=== PATIENT | female | born 1990 | race African-American/Black ===

== ENCOUNTER 2016-11-09 06:04 | Inpatient (IN) | payer OTHER ==
[~2016-11-09] VITALS: Ht 162.6 cm; Wt 77.1 kg
[2016-11-09] MEDS ORDERED: ACETAMINOPHEN 325 MG TABLET. PO PRN ×2 (06:15→18:15)
[2016-11-09] MEDS ORDERED: LIDOCAINE 1% PF 30 ML VIAL. INJ PRN (06:15)
[2016-11-09] MEDS ORDERED: 0.9 % SODIUM CHLORIDE 10 ML DISP.SYRIN. IV PRN ×2 (06:15→18:15)
[2016-11-09] MEDS ORDERED: TERBUTALINE 1 MG/ML VIAL. SQ PRN (06:15)
[2016-11-09] MEDS ORDERED: ONDANSETRON PF 4 MG/2 ML VIAL. IV PRN ×2 (06:15→13:30)
[2016-11-09] MEDS ORDERED: BUTORPHANOL 2 MG/ML VIAL. IV PRN (06:15)
[2016-11-09] MEDS ORDERED: fentaNYL PF VIAL 100 MCG/2 ML VIAL IV PRN (06:15)
[2016-11-09] MEDS ORDERED: OXYTOCIN 30 UNIT/500 ML PREMIX 500 ML IV PRN ×3 (06:15→18:15)
[2016-11-09] MEDS ORDERED: MAG HYDROX/ALUMINUM HYD/SIMETH 30 ML ORAL.SUSP PO PRN ×2 (06:15→18:15)
[2016-11-09] MEDS ORDERED: CITRIC ACID/SODIUM CITRATE 30 ML SOLUTION. PO PRN (06:15)
[2016-11-09 06:25] VITALS: BP 100/56
[2016-11-09] MEDS ORDERED: OMEG100021 PO (06:33)
[2016-11-09] MEDS ORDERED: PNV1TABL25 PO (06:33)
[2016-11-09 06:56] LABS: HEMATOCRIT 33.6 % (36.0-47.0); HEMOGLOBIN 11.3 g/dL (12.0-15.5); RED BLOOD COUNT 3.67 x10^6/uL (3.50-5.40); RED CELL DISTRIBUTION WIDTH 15.6 % (11.5-14.5); WHITE BLOOD COUNT 4.8 x10^3/uL (4.0-11.0)
[2016-11-09 08:15] LABS: BILIRUBIN,URINE NEGATIVE (NEG); GLUCOSE,URINE NEGATIVE (NEG); NITRITE,URINE NEGATIVE (NEG); PROTEIN,URINE NEGATIVE (NEG-TRACE); UROBILINOGEN,URINE 0.2 mg/dL (0.2 mg/dL)
[2016-11-09 08:26] LABS: BACTERIA,URINE FEW /HPF (0-FEW); RBC,URINE 0 /HPF (0-2); SQUAMOUS EPITHELIAL CELL,UR MANY /LPF
[2016-11-09] MEDS: IV RINGERS,LACTATED 1000ML 1,000 ML IV SCH ×3 (08:35→14:14)
--- NOTE | 2016-11-09 11:32 | PDOC1 ---
OB - History Hx of Present Care: Good Care Ultrasounds: Normal mid trimester US Obstetrical Complications: None Medical Complications: None Past Family/Social History * Past Medical, Surgical, Family and Obstetric Histories reviewed from chart. Rubella: Immune RPR/VDRL: Negative GBS Status: Negative HBsAG: Negative OB - Chief Complaint & HPI Date of Admission: Date of Admission: Nov 09, 2016 at 06:04 Chief Complaint/History : 3 Para: 2 EGA: 41 Reason for admission: induction of labor Indication for induction: maternal discomfort Admission Nurse Assessment Rev: Yes Problems: OB - Admission Exam Physical Exam Vitals: VS - Last 72 Hours, by Label Date Time Temp Pulse Resp B/P (MAP) Pulse Ox O2 Delivery O2 Flow Rate FiO2 11/09/16 06:25 98.0 82 18 100/56 (71) Room Air 98.0 HEENT: Normal Heart: Regular Rate Lungs: Clear, Equal Abdomen: Gravid, Non tender, Soft Extremities: Edema Reflexes: Normal Cervical Dilatation: 2cm Effacement: 50% Station: -3 Membranes: Intact Heart Rate: Normal Accelerations: Accelerations Present Decelerations: No decelerations Contractions on Admission: >10 Minutes Apart Intensity: Mild Text A: 39 wks IUP IOL secondary maternal discomforts P; Admit for IOl pitocin. MURRAY ALMEIDA Jr, MD Nov 09, 2016 11:32
[2016-11-09] MEDS ORDERED: L&D EPIDURAL CASSETTE 100 ML EP ONE (12:59)
[2016-11-09] MEDS ORDERED: ROPIVacaine 0.2% IN 0.9%NACL PF 40 MG/20 ML DISP.SYRIN. ONE ×2 (12:59→13:00)
[2016-11-09] MEDS ORDERED: L&D EPIDURAL CASSETTE 100 ML PUMP.RESVR. EP ONE (13:00)
[2016-11-09] MEDS ORDERED: ROPIVacaine 0.2% PF 10 ML VIAL. EPI ONE (13:30)
[2016-11-09] MEDS ORDERED: NALOXONE 0.4 MG/ML VIAL. IV PRN (13:30)
[2016-11-09] MEDS ORDERED: fentaNYL PF VIAL 100 MCG/2 ML VIAL EPI ONE (13:30)
[2016-11-09] MEDS ORDERED: ePHEDrine PF IN SALINE 50 MG/5 ML DISP.SYRIN IV PRN (13:30)
--- NOTE | 2016-11-09 18:10 | PDOC ---
VAGINAL DELIVERY DATE DATE: 11/09/16 TIME: 18:08 : 3 Para: 2 EDC: Nov 16, 2016 VAGINAL DELIVERY: VTX VACCUM ASSISTED: No PLACENTA: Spontaneous SEX: Male WEIGHT 6/3 Nuchal Cord: No Amniotic Fluid: Clear PAIN: Epidural EBL 300cc COMPLICATIONS None CONDITION Stable Signs of Intrauterine Infectio: None Shoulder Dystocia: No DIAGNOSIS TIUP del Problems: CYNDI HURD MD Nov 09, 2016 18:09
[2016-11-09] MEDS ORDERED: ZOLPIDEM 5 MG TABLET. PO PRN (18:15)
[2016-11-09] MEDS ORDERED: SIMETHICONE 80 MG TAB.CHEW PO PRN (18:15)
[2016-11-09] MEDS ORDERED: BENZOCAINE 20% TOPICAL AEROSOL SPRAY 57GM CAN. TP PRN (18:15)
[2016-11-09] MEDS ORDERED: diphenhydrAMINE HCL 25 MG CAPSULE PO PRN (18:15)
[2016-11-09] MEDS ORDERED: HYDROCORTISONE 1% TOPICAL OINTMENT 30GM TUBE. TP PRN (18:15)
[2016-11-09] MEDS ORDERED: MAGNESIUM HYDROXIDE 2,400 MG/30 ML ORAL.SUSP. PO PRN (18:15)
[2016-11-09] MEDS ORDERED: PHENYLEPH/MINERAL OIL/PETROLAT RECTAL OINTMENT 28GM TUBE. RC PRN (18:15)
[2016-11-09] MEDS: IBUPROFEN 800 MG TABLET. PO SCH (21:00)
[2016-11-09 21:45] VITALS: BP 113/63
[2016-11-09] MEDS: HYDROcodone/APAP 5/325MG 1 TAB TABLET PO PRN (22:56)
[2016-11-09 23:07] VITALS: BP 118/66
[2016-11-10] MEDS: HYDROcodone/APAP 5/325MG 1 TAB TABLET PO PRN ×3 (03:52→13:12)
[2016-11-10] MEDS: IBUPROFEN 800 MG TABLET. PO SCH (03:52)
[2016-11-10 03:58] VITALS: BP 106/68
[2016-11-10 06:23] LABS: RPR REFLEX Non Reactive (Non Reactive)
[2016-11-10] MEDS ORDERED: FERROUS SULFATE 325 MG TABLET. PO SCH (08:00)
[2016-11-10 10:30] VITALS: BP 104/59
[2016-11-10] MEDS: IBUPROFEN 800 MG TABLET. PO PRN (13:13)
--- NOTE | 2016-11-10 14:31 | PDOC ---
Provider Note Provider Note Doing well VSS Uterus NTTP FU in AM CYNDI HURD MD Nov 10, 2016 14:31
[2016-11-10] MEDS ORDERED: DIPHTH,PERTUSS(ACELL),TET TOX 0.5 ML DISP.SYRIN. VAX IM ONE (16:00)
[2016-11-10 16:30] VITALS: BP 126/83
[2016-11-10 22:05] VITALS: BP 106/58
[2016-11-11] MEDS: IBUPROFEN 800 MG TABLET. PO PRN ×2 (00:18→08:48)
[2016-11-11] MEDS: HYDROcodone/APAP 5/325MG 1 TAB TABLET PO PRN (00:18)
[2016-11-11 05:25] VITALS: BP 104/67
--- NOTE | 2016-11-11 10:22 | PDOC ---
OB Progress Note Date of Service 11/11/16 Time of Evaluation 1020 Notes Pt. feeling well. No complaints. Lab Laboratory Tests Test 11/10/16 04:00 Hematocrit 35.4 % (36.0-47.0) Medications Current Medications Sodium Chloride (Normal Saline Flush) 3 ml QSHIFT PRN IV AFTER MEDS AND BLOOD DRAWS; Start 11/09/16 at 06:15; Stop 11/10/16 at 17:02; Status DC Ringer's Solution 1,000 ml @ 125 mls/hr Q8H IV Last administered on 11/09/16t 14:14; Start 11/09/16 at 06:05; Stop 11/10/16 at 17:02; Status DC Butorphanol Tartrate (Stadol) 2 mg PRN Q1HR PRN IV Severe labor pain; Start at 06:15; Stop 11/10/16 at 17:02; Status DC Fentanyl Citrate (Fentanyl 2ml Vial) 100 mcg PRN Q30MIN PRN IV Severe pain; Start 11/09/16 at 06:15 Acetaminophen (Tylenol) 650 mg PRN Q6HRS PRN PO MILD PAIN / TEMP; Start at 06:15; Stop 11/10/16 at 17:02; Status DC Ondansetron HCl (Zofran) 4 mg PRN Q4HRS PRN IV NAUSEA/VOMITING; Start 11/09/16 at 06:15; Stop 11/10/16 at 17:02; Status DC Al Hydroxide/Mg Hydroxide (Mylanta Plus Xs) 30 ml PRN Q4HRS PRN PO HEARTBURN / GAS; Start 11/09/16 at 06:15; Stop 11/10/16 at 17:02; Status DC Citric Acid/ Sodium Citrate (Bicitra) 30 ml 1X PRN PRN PO DYSPEPSIA; Start at 06:15; Stop 11/10/16 at 06:14; Status DC Terbutaline Sulfate (Brethine) 0.25 mg 1X PRN PRN SQ SEE COMMENTS; Start at 06:15; Stop 11/10/16 at 06:14; Status DC Lidocaine HCl 30 ml 1X PRN PRN INJ SEE COMMENTS; Start 11/09/16 at 06:15; Stop 11/11/16 at 06:14; Status DC Oxytocin/Sodium Chloride 500 ml @ 0 mls/hr CONT PRN IV SEE I/O RECORD Last administered on 11/09/16 08:36; Start 11/09/16 at 06:15; Stop 11/10/16 at 17:02 ; Status DC Oxytocin/Sodium Chloride 500 ml @ 0 mls/hr CONT PRN PRN IV Post delivery bleeding; Start 11/09/16 at 06:15; Stop 11/10/16 at 17:02; Status DC Ibuprofen (Motrin) 800 mg PRN Q6HRS PRN PO PAIN Last administered on 11/11/16 08:48; Start 11/09/16 at 06:15 Ropivacaine/ Fentanyl/NS 100 ml @ As Directed STK-MED ONCE EP ; Start 11/09/16 at 12:59; Stop 11/09/16 at 13:00; Status DC Ropivacaine 40 mg STK-MED ONCE .ROUTE ; Start 11/09/16 at 12:59; Stop 11/09/16 at 13:00; Status DC Ephedrine Sulfate 10 mg PRN Q2MIN PRN IV IF SBP<90; Start 11/09/16 at 13:30 Naloxone HCl (Narcan) 0.04 mg PRN Q1MIN PRN IV SEE COMMENTS; Start 11/09/16 at 13:30 Fentanyl Citrate (Fentanyl 2ml Vial) 100 mcg 1X ONCE EPI ; Start 11/09/16 at 13 :30; Stop 11/09/16 at 13:31; Status DC Ondansetron HCl (Zofran) 4 mg PRN Q6HRS PRN IV NAUSEA/VOMITING; Start 11/09/16 at 13:30 Ropivacaine (Naropin 0.2%) 20 ml 1X ONCE EPI ; Start 11/09/16 at 13:30; Stop at 13:31; Status DC Sodium Chloride (Normal Saline Flush) 10 ml QSHIFT PRN IV AFTER MEDS AND BLOOD DRAWS; Start 11/09/16 at 18:15; Stop 11/10/16 at 17:02; Status DC Oxytocin/Sodium Chloride 500 ml @ 62.5 mls/hr CONT PRN IV SEE I/O RECORD; Start 11/09/16 at 18:15; Stop 11/10/16 at 02:14; Status DC Acetaminophen (Tylenol) 650 mg PRN Q6HRS PRN PO MILD PAIN / TEMP; Start at 18:15 Ibuprofen (Motrin) 800 mg Q8HRS PO Last administered on 11/10/16 03:52; Start 11/09/16 at 22:00; Stop 11/10/16 at 17:02; Status DC Magnesium Hydroxide (Milk Of Magnesia) 2,400 mg PRN DAILY PRN PO CONSTIPATION; Start 11/09/16 at 18:15 Al Hydroxide/Mg Hydroxide (Mylanta Plus Xs) 30 ml PRN Q4HRS PRN PO HEARTBURN / GAS; Start 11/09/16 at 18:15 Simethicone (Gas-X) 80 mg PRN AFTMEALHC PRN PO GAS / BLOATING; Start 11/09/16 at 18:15 Diphenhydramine HCl (Benadryl) 25 mg PRN Q6HRS PRN PO ITCHING; Start 11/09/16 at 18:15 Benzocaine (Americaine) 1 spray PRN QID PRN TP TOPICAL PAIN Last administered on 11/09/16 20:59; Start 11/09/16 at 18:15 Phenyleph/Shark Oil/Min Oil/Petrol (Preparation H) 1 kiana PRN QID PRN RC RECTAL PAIN; Start 11/09/16 at 18:15 Hydrocortisone (Cortaid) 1 kiana PRN QID PRN TP RECTAL PAIN; Start 11/09/16 at 18 :15 Ferrous Sulfate (Feosol) 325 mg BIDWMEALS PO ; Start 11/10/16 at 08:00; Stop at 17:02; Status DC Zolpidem Tartrate (Ambien) 5 mg PRN QHS PRN PO INSOMNIA, MAY REPEAT X1; Start 11/09/16 at 18:15 Info (Do NOT chart on this placeholder) 1 ea 1X PRN PRN MC SEE COMMENTS; Start 11/09/16 at 18:15; Status Cancel Acetaminophen/ Hydrocodone Bitart (Lortab 5/325) 1 tab PRN Q4HRS PRN PO PAIN Last administered on 11/11/16 00:18; Start 11/09/16 at 18:15 Ropivacaine 40 mg STK-MED ONCE .ROUTE ; Start 11/09/16 at 13:00; Stop 11/10/16 at 07:24; Status DC Ropivacaine/ Fentanyl/NS (Ydlmwuvz-Eeoah-SV 3 Mcg-0.1%) 100 ml STK-MED ONCE EP ; Start 11/09/16 at 13:00; Stop 11/10/16 at 08:03; Status DC Diphtheria/ Tetanus/Acell Pertussis (Boostrix) 0.5 ml ONCE ONCE VAX IM Last administered on 11/10/16t 16:24; Start 11/10/16 at 16:00; Stop 11/10/16 at 16:01 ; Status DC Active Scripts Active Reported Tablet (Pnv Cmb#95/Ferrous Fumarate/Fa) 1 Each Tablet 1 Each PO DAILY Fish Oil 1,000 mg Softgel ([place]-3/Dha/Epa/Fish Oil) 1,000 Mg Capsule 1,000 Mg PO DAILY Exam Abd: soft,non tender, fundus firm Assessment PPD#2 s/p Plan of Care: See new orders (D/c home.) MURRAY ALMEIDA Jr, MD Nov 11, 2016 10:22
--- NOTE | 2016-11-11 10:23 | DISCH ---
DISCHARGE INSTRUCTIONS Condition on Discharge Condition on Discharge: Stable Activity After Discharge Activity Instructions for Disc: Activity as tolerated Lifting Instructions after Dis: No heavy lifting Driving Instructions after Dis: Do not drive today Diet after Discharge Diet after Discharge: Regular Contacting the [facility] after DC Call your doctor for: Concerns you may have Follow-Up Follow Up With: Dr. Duran in 1 week. MURRAY ALMEIDA Jr, MD Nov 11, 2016 10:23
[2016-11-11] MEDS ORDERED: NAPR500T PO (10:24)
[2016-11-11] MEDS ORDERED: HYDR-971 PO (10:24)
[2016-11-11 11:30] VITALS: BP 107/64
== END 2016-11-11 13:00 | disposition home or self-care (01) | DRG 775 ==
LOC: 3 SO LND 06:04 → 3 NORTH 21:45
PROVIDERS: ADMIT Specialist; ATTEND Specialist
PROC: 3E033VJ Introduction of Other Hormone into Peripheral Vein, Percutaneous Approach (ICD-10-PCS; principal; 2016-11-09)
PROC: 10E0XZZ Delivery of Products of Conception, External Approach (ICD-10-PCS; 2016-11-09)
PROC: 3E0S3CZ (ICD-10-PCS; 2016-11-09)
PROC: 00HU33Z Insertion of Infusion Device into Spinal Canal, Percutaneous Approach (ICD-10-PCS; 2016-11-09)
DX: O75.89 Other specified complications of labor and delivery (principal); Z3A.39 39 weeks gestation of pregnancy; Z37.0 Single live birth
CPT/HCPCS: 36415; 81001; 85014; 85027; 86593; 86850; 86900; 86901; 87086; 90715; J2590; J2795; J7120